=== PATIENT | male | born 1965 | race Caucasian/White ===

== ENCOUNTER → 2017-01-14 | Outpatient (CLI) | payer OTHER ==
[2017-01-14 12:37] LABS: BUN/CREATININE RATIO 13 (0-10)
== END ==
LOC: LAB 10:57
PROVIDERS: Internal Medicine Nephrology
DX: N17.9 Acute kidney failure, unspecified (principal)
CPT/HCPCS: 36415; 80048; 81001; 82043; 82570

== ENCOUNTER → 2020-08-17 | Outpatient (CLI) | payer OTHER ==
[~2020-08-17] MED LIST: IBUPROFEN600 MG PO
== END ==
LOC: HEART 5 14:18
DX: I11.9 Hypertensive heart disease without heart failure (principal); R00.2 Palpitations; R07.9 Chest pain, unspecified; R00.9 Unspecified abnormalities of heart beat; I08.1 Rheumatic disorders of both mitral and tricuspid valves; I27.20 Pulmonary hypertension, unspecified; R94.31 Abnormal electrocardiogram [ECG] [EKG]
CPT/HCPCS: 93306

== ENCOUNTER → 2021-06-01 | Outpatient (CLI) | payer OTHER ==
[2021-06-01 12:18] LABS: BUN/CREATININE RATIO 15 (0-10)
[2021-06-02 08:14] LABS: VITAMIN D, 25-HYDROXY 27.2 ng/mL (30.0-100.0)
[2021-06-03 10:13] LABS: TESTOSTERONE, SERUM 263 ng/dL (264-916)
== END ==
LOC: LAB 11:32
PROVIDERS: Urology
DX: R68.82 Decreased libido (principal); G89.4 Chronic pain syndrome; R53.83 Other fatigue; Z79.891 Long term (current) use of opiate analgesic
CPT/HCPCS: 36415; 80048; 82607; 82652; 84402; 84403